=== PATIENT | female | born 1980 | race Caucasian/White ===

== ENCOUNTER → 2023-09-28 13:31 | Outpatient (REF) | payer OTHER, SELFPAY | LOC: HWRAD 13:31 | PROVIDERS: ATTENDING PHYSICIAN Nurse Practitioner Family | DX: R87.629 Unspecified abnormal cytological findings in specimens from vagina (principal); N93.9 Abnormal uterine and vaginal bleeding, unspecified | CPT/HCPCS: 76830; 76856 ==

== ENCOUNTER → 2024-04-12 09:54 | Outpatient (REF) | payer OTHER, SELFPAY | LOC: RAD 09:54 | PROVIDERS: ATTENDING PHYSICIAN Nurse Practitioner Family | DX: R06.02 Shortness of breath (principal) | CPT/HCPCS: 71046 ==

== ENCOUNTER 2024-04-14 14:33 | Emergency (ER) | payer OTHER, SELFPAY ==
[2024-04-14 14:42] VITALS: BP 129/80
--- NOTE | 2024-04-14 14:43 | ED.GENMED ---
ED Provider Triage
<Chicho López PA-C - Last Filed: 04/14/24 14:45>
-
Patient seen by provider in Triage?: Seen in Triage
Attestation: A medical screening examination has been initiated by a qualified medical provider. Based on the assessment performed at this time, it has been determined that an emergent medical condition may exist and the patient has been informed
that further medical evaluation and possible additional diagnostic testing may be needed.
HPI: 43-year-old female presenting to the ER at the request of primary care provider for chest pain and shortness of breath. Shortness of breath has been ongoing for about a week, chest pain more waxing and waning over the last few days. Patient
had EKG and chest x-ray done as an outpatient which did not show any abnormalities. Has a history of factor V Leiden. PCP concern for possible pulmonary embolism/send patient to the ER for further evaluation. Labs and CT imaging ordered.
GENERAL: Alert , in no apparent distress
EYE: No visual abnormalities.
NECK: Trachea midline
ENT: No visible abnormalities.
LUNGS: No acute respiratory distress
NEUROLOGICAL: Alert and oriented
SKIN: Skin intact. No visible changes.
MUSCULOSKELETAL: Moving extremities normally
PSYCH: Normal and appropriate interaction.
This is a medical evaluation conducted in person to initiate diagnostic evaluation and provide initial therapeutics. Please see further documentation by the treating clinician.
History of Present Illness
<Chicho López PA-C - Last Filed: 04/14/24 14:45>
General
Chief Complaint: Breathing Problem
Time Seen by Provider: 04/14/24 19:48
<JESSICA Sanchez - Last Filed: 04/14/24 21:15>
General
Source: patient
Exam Limitations: none
History of Present Illness
History of Present Illness:
This is a 43 year old female that comes in with c/o SOB. States that last week she had this pound in her heart, sweating and shaking. States that she gets this tightness in her chest. States that for the past 2 weeks she has been SOB with activity.
States that she thought it was from stress. States that on Sunday when this happened she called the PCP and saw them on . States that she had blood work done. Sates that she called her on Sunday with the results and she was sent for a
chest x-ray. Stats that this was clear. 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 States that she occasionally has this chest tightness and when she takes a deep breath it feels that her muscles
are pulling in her chest. Denies any fever, chills, abd pain, nausea, vomiting, diarrhea, headache, dizziness, urinary burning.
Past History
<Chicho López PA-C - Last Filed: 04/14/24 14:45>
Past History
ED Past Medical History: Other (Factor V Leiden heterozygous)
ED Past Surgical History: Gynecological
Social History
Tobacco: Former smoker
Alcohol: Occasional
Drug: None
Personal:
Living: with family
<JESSICA Sanchez - Last Filed: 04/14/24 21:15>
Past History
ED Past Medical History: Psychiatric (Anxiety, Depression) and Other (Factor V Leiden heterozygous, )
ED Past Surgical History: Gynecological (Tubal) and Other (Breast augmentation, Cataracts, Lipo, oral surgery, Gastric sleeve)
Social History
Tobacco: Vaping
Personal:
Review of Systems
<JESSICA Sanchez - Last Filed: 04/14/24 21:15>
Review of Systems
All Other Systems: ROS reviewed and negative except as documented in HPI and ROS
Constitutional: Reports no symptoms; Denies fever or chills
EENT: Reports no symptoms
Respiratory: Reports trouble breathing; Denies cough
Cardiac: Reports chest pain (Tightness)
ABD/GI: Reports no symptoms; Denies abdominal pain, nausea, vomiting or diarrhea
: Reports no symptoms; Denies dysuria, frequency or urgency
Musculoskeletal: Reports no symptoms
Skin: Reports no symptoms
Neurological: Reports no symptoms; Denies dizzy or headache
Psychiatric: Reports no symptoms
Phy Exam
<JESSICA Sanchez - Last Filed: 04/14/24 21:15>
General Physical Exam
General Presentation: well appearing and no apparent distress
General age: appears stated age
General Skin: warm and dry
General Habitus: normal
General Mental: alert
General Hydration: appears well hydrated
ENT Exam
ENT Exam: TM's normal, pharynx normal and neck supple
Eye Exam
Eye Exam: EOMI
Cardiovascular Exam
Cardiovascular Exam: regular rate/rhythm, no murmur and normal peripheral pulses
Pulmonary Exam
Pulmonary Exam: lungs clear, no respiratory distress, no rales, chest non tender, no crackles, no rhonchi, no wheezing and no cough
Gastrointestinal Exam
Gastrointestinal Exam: normal bowel sounds, soft, no organomegaly, no pulsatile mass, non distended and tender (Left lower tenderness only with palpation. States that she just eat something and has a cramp. )
Musculoskeletal Exam
Musculoskeletal Exam: full ROM and no edema
Skin Exam
Skin Exam: normal color, warm/dry, no rash and no petechia
Psychiatric Exam
Psychiatric Exam: normal mood/affect
Course
<Chicho López PA-C - Last Filed: 04/14/24 14:45>
Orders/Labs/Results
Orders:
Orders
04/14/24 14:42
CT Chest PE Study Urgent
Comment:
Reason For Exam: factor 5, chest pain/SOB
Test Result ONCE
04/14/24 14:43
Electrocardiogram (*1) Urgent
Reason for Study: Chest Pain
EKG- Treatment ONCE
04/14/24 14:59
Complete Blood Count/With Diff Urgent
Comprehensive Metabolic Panel Urgent
HCG, Serum Qualitative Screen Urgent
NT-proBNP Urgent
Troponin I Urgent
04/14/24 20:12
Ipratropium/Albuterol Sulfate [Duoneb] 3 ml INH R NOW ONE
Abnormal Lab Results
04/14/24
14:59
RBC 3.92 L 10^6/uL
(4.20-5.40)
Hgb 9.7 L g/dL
(12.0-16.0)
Hct 30.8 L %
(37.0-47.0)
MCV 78.6 L fL
(81.0-99.0)
MCH 24.7 L pg
(27.0-31.0)
MCHC 31.5 L g/dL
(33.0-37.0)
RDW 16.1 H %
(11.5-14.5)
MPV 10.9 H fL
(7.4-10.4)
BUN 23 H mg/dl
(7-17)
Total Bilirubin 0.1 L mg/dl
(0.2-1.3)
04/14/24 14:59
04/14/24 14:59
Vital Signs
Initial and Last Documented VS:
Initial Vital Signs
Temp Pulse Resp BP Pulse Ox
99 F 67 16 129/80 100
04/14/24 14:42 04/14/24 14:42 04/14/24 14:42 04/14/24 14:42 04/14/24 14:42
Last Documented Vital Signs
Temp Pulse Resp BP Pulse Ox
98.5 F 68 16 113/65 98
04/14/24 18:55 04/14/24 18:55 04/14/24 18:55 04/14/24 21:00 04/14/24 21:15
<JESSICA Sanchez - Last Filed: 04/14/24 21:15>
Orders/Labs/Results
Orders:
Orders
04/14/24 14:42
CT Chest PE Study Urgent
Comment:
Reason For Exam: factor 5, chest pain/SOB
Test Result ONCE
04/14/24 14:43
Electrocardiogram (*1) Urgent
Reason for Study: Chest Pain
EKG- Treatment ONCE
04/14/24 14:59
Complete Blood Count/With Diff Urgent
Comprehensive Metabolic Panel Urgent
HCG, Serum Qualitative Screen Urgent
NT-proBNP Urgent
Troponin I Urgent
04/14/24 20:12
Ipratropium/Albuterol Sulfate [Duoneb] 3 ml INH R NOW ONE
Abnormal Lab Results
04/14/24
14:59
RBC 3.92 L 10^6/uL
(4.20-5.40)
Hgb 9.7 L g/dL
(12.0-16.0)
Hct 30.8 L %
(37.0-47.0)
MCV 78.6 L fL
(81.0-99.0)
MCH 24.7 L pg
(27.0-31.0)
MCHC 31.5 L g/dL
(33.0-37.0)
RDW 16.1 H %
(11.5-14.5)
MPV 10.9 H fL
(7.4-10.4)
BUN 23 H mg/dl
(7-17)
Total Bilirubin 0.1 L mg/dl
(0.2-1.3)
04/14/24 14:59
04/14/24 14:59
H/H low Anemia. Dehydration. Total matthew slightly low. Troponin <0.012, Pro-BNP 78.6, HCG negative
Vital Signs
Initial and Last Documented VS:
Initial Vital Signs
Temp Pulse Resp BP Pulse Ox
99 F 67 16 129/80 100
04/14/24 14:42 04/14/24 14:42 04/14/24 14:42 04/14/24 14:42 04/14/24 14:42
Last Documented Vital Signs
Temp Pulse Resp BP Pulse Ox
98.5 F 68 16 113/65 98
04/14/24 18:55 04/14/24 18:55 04/14/24 18:55 04/14/24 21:00 04/14/24 21:15
<Rivas Nielsen DO - Last Filed: 04/14/24 22:27>
Orders/Labs/Results
Orders:
Orders
04/14/24 14:42
CT Chest PE Study Urgent
Comment:
Reason For Exam: factor 5, chest pain/SOB
Test Result ONCE
04/14/24 14:43
Electrocardiogram (*1) Urgent
Reason for Study: Chest Pain
EKG- Treatment ONCE
04/14/24 14:59
Complete Blood Count/With Diff Urgent
Comprehensive Metabolic Panel Urgent
HCG, Serum Qualitative Screen Urgent
NT-proBNP Urgent
Troponin I Urgent
04/14/24 20:12
Ipratropium/Albuterol Sulfate [Duoneb] 3 ml INH R NOW ONE
Abnormal Lab Results
04/14/24
14:59
RBC 3.92 L 10^6/uL
(4.20-5.40)
Hgb 9.7 L g/dL
(12.0-16.0)
Hct 30.8 L %
(37.0-47.0)
MCV 78.6 L fL
(81.0-99.0)
MCH 24.7 L pg
(27.0-31.0)
MCHC 31.5 L g/dL
(33.0-37.0)
RDW 16.1 H %
(11.5-14.5)
MPV 10.9 H fL
(7.4-10.4)
BUN 23 H mg/dl
(7-17)
Total Bilirubin 0.1 L mg/dl
(0.2-1.3)
04/14/24 14:59
04/14/24 14:59
Vital Signs
Initial and Last Documented VS:
Initial Vital Signs
Temp Pulse Resp BP Pulse Ox
99 F 67 16 129/80 100
04/14/24 14:42 04/14/24 14:42 04/14/24 14:42 04/14/24 14:42 04/14/24 14:42
Last Documented Vital Signs
Temp Pulse Resp BP Pulse Ox
98.5 F 68 16 113/65 98
04/14/24 18:55 04/14/24 18:55 04/14/24 18:55 04/14/24 21:00 04/14/24 21:15
<JESSICA Sanchez - Last Filed: 04/14/24 21:15>
MDM/Problems Addressed
Differential Diagnosis Includes:
Respiratory disease due to smoking/Vaping
MDM/Problems Addressed:
This is a 43 year old female that comes in with c/o chest tightness and SOB. States that this started about about 2 weeks ago. States that she is SOB with activity. Patient has blood work done by the PCP and chest x-ray. Sent in for further
evaluaiton.
Labs were drawn and CT of the chest. Will give Duo neb.
Patient seen by Dr. Nielsen. Patient did not feel that the duo neb really helped. Will discharge patient home.
Chronic conditions affecting care: Psychiatric illness (Anxiety)
Acute Exacerbation and/or Progression of Chronic Illness:
NA
<JESSICA Sanchez - Last Filed: 04/14/24 21:15>
*Radiology
Radiology exam reviewed: radiology read reviewed (CT chest- Mild to moderate respiratory motion artifact, limiting evaluation. IN this limitation, no evidence for pulmonary embolism. Mild dependent atelectasis in the posterior lungs. )
*Pulse Oximetry
Patient hypoxic: no
*EKG
Interpreted by ED Provider?: Yes
Heart Rate: 60
Rate: normal
Rhythm: sinus
[place]: normal axis
Interval: normal interval
QRS Pattern: normal QRS
Ischemia: no ischemia
*Training Program Manager Interpretation
Rate: Training Program Manager- N/A
*Critical Care Note
Total Time (30-74mins, 75-104mins- exclusive of procedures): Not Applicable
ED Attending Note
<Chicho López PA-C - Last Filed: 04/14/24 14:45>
-
Portions of this chart may have been created with voice recognition software.� Occasional wrong word or��sound alike� substitutions may have occurred due to the inherent limitations of voice recognition software.
<Rivas Nielsen DO - Last Filed: 04/14/24 22:27>
ED Attending Note
Patient seen and examined by attending physician: Yes
I performed the substantive portion of visit, reviewed & personally made and approve the management plan that is documented in note by myself or JOSE.: Yes
ED Attending Note:
I agree with Olive's note
Patient presents complaining of pains in her lateral thorax intermittently for the past 5 days or so. She also have periods of feeling short of breath. Patient states she has a history of factor V [place]. Doctor referred her for evaluation. No
fever or chills.
General: Awake, Alert, Oriented X3. No acute distress.
Vitals: unremarkable
Head: Atraumatic
Eyes: Pupils equal, EOMI
Throat: Airway intact, no exudates
Neck: Trachea midline
Lungs: Clear and equal b/l
Heart: Regular rate, no murmurs
Neuro: Nonfocal
Skin: Warm, dry, no rash
Extremities: pulses equal b/l, no edema
CT chest performed. No acute abnormalities. Labs show mild anemia. Chemistries are unremarkable. EKG shows no acute ischemic changes.
Patient stable for discharge home
Discharge Plan
Departure
Patient Disposition: Home (Routine Discharge)
Date of Disposition: 04/14/24
Time of Disposition: 21:09
Patient with high blood pressure during this ER visit?: No
Condition: Good
Covid-19: Not Applicable
Discharge Problem:
SOB (shortness of breath)
Instructions: Shortness of Breath (Dyspnea) (DC)
Prescriptions:
No Action
clindamycin HCl 300 MG capsule
300 mg PO QID Qty: 28 0RF
ascorbic acid (vitamin C) [Vitamin C] 500 MG tablet
1,000 mg PO BID Qty: 56 0RF
Rx Instructions:
Take 1,000 mg twice a day for 14 days
zinc sulfate 220 MG capsule
220 mg PO DAILY Qty: 14 0RF
Rx Instructions:
Take 220 mg daily for 14 days
cholecalciferol (vitamin D3) 1,000 UNITS tablet
2,000 units PO DAILY Qty: 28 0RF
Rx Instructions:
Take 2,000 units daily for 14 days
ondansetron [Zofran ODT] 8 MG tablet,disintegrating
8 mg PO TID PRN (Reason: nausea/vomiting) Qty: 20 0RF
oxycodone 5 MG tablet
5 mg PO Q4HPRN PRN (Reason: pain) Qty: 14 0RF
Referrals:
UNKNOWN - PT DOES,NOT KNOW [Unknown Provider] -
Activity Restrictions/Additional Instructions:
As discussed, your blood work shows you are a little anemic and Dehydration. Please increase your water intake to 8-8oz glasses daily. Your CT of the chest is negative for any blood clots. Follow up with the Family doctor for recheck. IF YOU HAVE
ANY OTHER CONCERNS PLEASE RETURN TO THE EMERGENCY ROOM.
Interventions
Interventions:
*Risk Screen - Suicide Last Done: 04/14/24 14:42
*General Assessment Last Done: 04/14/24 20:29
*Neglect/Abuse Screening Last Done: 04/14/24 14:42
ED- Fall Risk Assessment Last Done: 04/14/24 20:29
*ED COVID-19 Vaccine History Last Done: 04/14/24 20:29
*Nursing Disposition Last Done: 04/14/24 21:31
ED- Cardiac Assessment Last Done: 04/14/24 20:29
ED- Pulmonary Assessment Last Done: 04/14/24 20:29
Discharge Date and Time
Discharge Date/Time: 04/14/24 21:32
Print Language: CITIZEN OF [place]
[2024-04-14 15:16] LABS: % Basophils 0.3 % (0-2); % Eosinophils 1.7 % (0-6); % Immature Granulocytes 0.2 % (0-0.5); % Lymphocytes 37.4 % (20.5-51.1); % Monocytes 4.8 % (1.7-9.3); % Neutrophils 55.6 % (42.2-75.2); Absolute Eosinophils 0.1 10^3/uL (0-0.7); Absolute Lymphocytes 2.5 10^3/uL (1.2-3.4); Absolute Monocytes 0.3 10^3/uL (0.1-0.6); Absolute Neutrophils 3.7 10^3/uL (1.4-6.5); Hematocrit 30.8 % (37.0-47.0); Hemoglobin 9.7 g/dL (12.0-16.0); Mean Corp Hgb Conc. 31.5 g/dL (33.0-37.0); Mean Corpuscular Hgb 24.7 pg (27.0-31.0); Mean Corpuscular Volume 78.6 fL (81.0-99.0); Mean Platelet Volume 10.9 fL (7.4-10.4); Nucleated Red Blood Cells % 0 %; Platelet Count 280 10^3/uL (130-400); Red Blood Cell Count 3.92 10^6/uL (4.20-5.40); Red Cell Dist. Width 16.1 % (11.5-14.5); White Blood Cell Count 6.6 10^3/uL (4.8-10.8)
[2024-04-14 15:26] LABS: HCG, Serum Qualitative Screen Negative
[2024-04-14 15:28] LABS: ALT (SGPT) 13 U/L (0-35); AST (SGOT) 21 U/L (14-36); Albumin 4.2 g/dl (3.5-5.0); Alkaline Phosphatase 58 U/L (38-126); Blood Urea Nitrogen 23 mg/dl (7-17); Carbon Dioxide 27 mmol/L (22-30); Chloride 103 mmol/L (98-107); Glucose 89 mg/dl (70-99); Sodium 137 mmol/L (135-145); Total Bilirubin 0.1 mg/dl (0.2-1.3); Total Protein 6.7 g/dl (6.3-8.2); eGFR > 60.00
[2024-04-14 15:40] LABS: NT-proBNP 78.6 pg/ml; Troponin I < 0.012 ng/ml
[2024-04-14 18:55] VITALS: BP 124/66
[2024-04-14] MEDS: DUONEB 3 ML INH (20:21)
[2024-04-14 20:26] VITALS: BMI 36.0
[2024-04-14 20:32] VITALS: BP 104/70
[2024-04-14 21:00] VITALS: BP 113/65
== END 2024-04-14 21:32 | disposition home or self-care (01) ==
LOC: EMR 14:33
PROVIDERS: Physician Assistant Medical; EMERGENCY PHYSICIAN Emergency Medicine; FAMILY PHYSICIAN Physician Assistant
DX: R06.02 Shortness of breath (principal); D68.51 Activated protein C resistance; D64.9 Anemia, unspecified; Z87.891 Personal history of nicotine dependence; F41.9 Anxiety disorder, unspecified
CPT/HCPCS: 99284; 94640; 71275; 80053; 83880; 84484; 84703; 85025; 93005; Q9967